=== PATIENT | female | born 1955 | race Caucasian/White ===

== ENCOUNTER → 2017-06-24 | Outpatient (CLI) | payer OTHER ==
[~2017-06-24] MED LIST: ASPIRIN E.C.81 M1 PO; Ambien PO; FIBER THERAPY0.52 GM PO; FOSAMAX70 MG PO; IMITREX25 MG PO; Imitrex SC; MAXALT10 MG PO; TORADOL10 MG PO; ULTRAM50 MG PO
== END | disposition home or self-care (01) ==
LOC: CDC 11:01
DX: M19.011 Primary osteoarthritis, right shoulder (principal); M75.21 Bicipital tendinitis, right shoulder; M25.511 Pain in right shoulder
CPT/HCPCS: 93000

== ENCOUNTER 2017-11-28 13:06 | Day surgery (SDC) | payer OTHER ==
[~2017-11-28] VITALS: Ht 149.9 cm; Wt 59.0 kg
[~2017-11-28 13:06] MED LIST changes: +ACETAMINOPHEN1 EAC4 PO; +CYANOCOBALAM1000 MCG PO; +ESTROVEN 155 M155 MG PO; +LEVSIN-SL0.125 MG SL; +MOBIC7.5 MG PO; +OCUVITE TABLET1 EACH PO; +SYNTHROID25 MCG PO; +VITAMIN C1000 MG PO; +ZOCOR20 MG PO
[2017-11-28 13:36] VITALS: BP 128/67
[2017-11-28 16:11] VITALS: BP 148/77
[2017-11-28 17:05] VITALS: BP 132/66
== END 2017-11-28 17:20 | disposition home or self-care (01) ==
LOC: SDC 13:06
PROC: 01N50ZZ Release Median Nerve, Open Approach (ICD-10-PCS; principal; 2017-11-28)
DX: G56.02 Carpal tunnel syndrome, left upper limb (principal); E03.9 Hypothyroidism, unspecified; K21.9 Gastro-esophageal reflux disease without esophagitis; E78.00 Pure hypercholesterolemia, unspecified
CPT/HCPCS: J1100; J2250; J2405